=== PATIENT | male | born 1975 | race Caucasian/White ===

== ENCOUNTER 2021-05-14 15:28 | Emergency (ER) | payer BC ==
--- NOTE | 2021-05-14 16:32 | EDM.PDOC ---
ED HPI GENERAL MEDICAL PROBLEM - General Chief Complaint: Abdominal Pain Stated Complaint: UPPER ABDOMINAL PAIN Time Seen by Provider: 05/14/21 16:00 Source of Information: Reports: Patient History Limitations: Reports: No Limitations - History of Present Illness INITIAL COMMENTS - FREE TEXT/NARRATIVE: Patient 46-year-old male presenting to the emergency room with a chief complaint of epigastric pain. Patient reports pain is been ongoing for the past 4 days. Patient reports the pain does not radiate but seems to not get any better. Patient ports the pain does go away for some time but does return. Patient reports no exertional symptoms. Patient reports shortness of breath but that has been present since the patient had Covid in early May. Patient states he has had issues with acid reflux in the past but this feels worse. Patient denies any nausea, vomiting, diarrhea. Normal bowel movements. Denies any history of smoking. Patient did drink several alcoholic beverages 2 days ago for his birthday. Middle Abdomen Pain Score (Numeric/FACES): 5 - Related Data Allergies Allergy/AdvReac Type Severity Reaction Status Date / Time No Known Allergies Allergy Verified 05/14/21 15:58 Home Meds: Home Meds Rosuvastatin Calcium [Crestor] 1 tab PO DAILY 05/14/21 [History] Past Medical History Cardiovascular History: Reports: Hypertension Gastrointestinal History: Reports: GERD Psychiatric History: Reports: Anxiety - Infectious Disease History Infectious Disease History: Reports: Novel Coronavirus Social & Family History - Tobacco Use Tobacco Use Status *Q: Never Tobacco User - Caffeine Use Caffeine Use: Reports: None - Recreational Drug Use Recreational Drug Use: No ED ROS GENERAL - Review of Systems Review Of Systems: See Below Free Text/Narrative/Comment: In addition to that documented in the HPI above, the additional ROS was obtained: Constitutional: Denies fevers or chills Eyes: Denies vision changes ENMT: Denies sore throat CV: Denies chest pain Resp: Per HPI GI: Denies vomiting or diarrhea : Denies painful urination MSK: Denies recent trauma Skin: Denies new rashes Neuro: Denies new numbness or tingling or weakness Endocrine: Denies unexpected weight loss Heme: Denies bleeding disorders ED EXAM, GI/ABD - Physical Exam Exam: See Below Text/Narrative:: I have reviewed the triage vital signs Const: Well nourished, well developed, appears stated age Eyes: Pupils Equal and reactive to light bilaterally, no conjunctival injection HENT: No signs of trauma or swelling, Neck supple without meningismus CV: Regular Rate Rhythm, Warm, well-perfused extremities RESP: Unlabored respiratory effort GI: soft, epigastrium is mildly tender to palpation. There is no right upper quadrant tenderness palpation., non-distended, no masses MSK: No gross deformities appreciated Skin: Warm, dry. 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 Sensation and motor function of extremities grossly intact. Psych: Appropriate mood and affect. #1 Interpretation EKG Date: 05/14/21 Time: 16:04 Rhythm: NSR Rate (Beats/Min): 96 [place]: RAD-Right [place] Deviation P-Wave: Present QRS: Normal ST-T: Normal QT: Normal Course - Vital Signs Last Recorded V/S: Last Vital Signs Temp 36.2 C 05/14/21 15:56 Pulse 60 05/14/21 15:56 Resp 18 05/14/21 15:56 BP 141/86 H 05/14/21 15:56 Pulse Ox 96 05/14/21 15:56 - Orders/Labs/Meds Labs: Laboratory Tests 05/14/21 05/14/21 Range/Units 17:00 17:00 WBC 7.23 (4.23-9.07) K/mm3 RBC 5.20 (4.63-6.08) M/mm3 Hgb 15.3 (13.7-17.5) gm/dl Hct 45.1 (40.1-51.0) % MCV 86.7 (79.0-92.2) fl MCH 29.4 (25.7-32.2) pg MCHC 33.9 (32.2-35.5) g/dl RDW Std Deviation 39.7 (35.1-43.9) fL Plt Count 241 (163-337) K/mm3 MPV 9.7 (9.4-12.3) fl Neut % (Auto) 74.6 H (34.0-67.9) % Lymph % (Auto) 15.1 L (21.8-53.1) % [place] % (Auto) 9.4 (5.3-12.2) % Eos % (Auto) 0.7 L (0.8-7.0) Baso % (Auto) 0.1 (0.1-1.2) % Neut # (Auto) 5.39 H (1.78-5.38) K/mm3 Lymph # (Auto) 1.09 L (1.32-3.57) K/mm3 [place] # (Auto) 0.68 (0.30-0.82) K/mm3 Eos # (Auto) 0.05 (0.04-0.54) K/mm3 Baso # (Auto) 0.01 (0.01-0.08) K/mm3 Sodium 136 (136-145) mEq/L Potassium 4.2 (3.5-5.1) mEq/L Chloride 100 (98-107) mEq/L Carbon Dioxide 27 (21-32) mEq/L Anion Gap 13.2 (5-15) BUN 14 (7-18) mg/dL Creatinine 1.2 (0.7-1.3) mg/dL Est Cr Clr Drug Dosing 86.93 mL/min Estimated GFR (MDRD) > 60 (>60) mL/min BUN/Creatinine Ratio 11.7 L (14-18) Glucose 112 H (70-99) mg/dL Calcium 9.5 (8.5-10.1) mg/dL Total Bilirubin 0.8 (0.2-1.0) mg/dL AST 20 (15-37) U/L ALT 42 (16-63) U/L Alkaline Phosphatase 71 (46-116) U/L Troponin I < 0.017 (0.00-0.056) ng/mL Total Protein 8.2 (6.4-8.2) g/dl Albumin 4.4 (3.4-5.0) g/dl Globulin 3.8 gm/dL Albumin/Globulin Ratio 1.2 (1-2) Lipase 109 (73-393) U/L Meds: Medications Discontinued Medications Generic Name Dose Route Start Last Admin Trade Name Freq PRN Reason Stop Dose Admin Al Hydroxide/Mg Hydroxide 30 0 ml 05/14/21 16:39 05/14/21 17:02 ml/ Lidocaine HCl 15 ml PO 05/14/21 16:40 45 ml ONETIME ONE Administration Famotidine 20 mg 05/14/21 16:39 05/14/21 17:01 Famotidine 20 Mg Tab PO 05/14/21 16:40 20 mg ONETIME ONE Administration Departure - Departure Time of Disposition: 17:41 Disposition: Home, Self-Care 01 Clinical Impression: Abdominal pain - Discharge Information *PRESCRIPTION DRUG MONITORING PROGRAM REVIEWED*: Not Applicable *COPY OF PRESCRIPTION DRUG MONITORING REPORT IN PATIENT HYUN: Not Applicable Instructions: Abdominal Pain, Adult, [id number] Referrals: James Mejía MD [Primary Care Provider] - Forms: ED Department Discharge Additional Instructions: To the emergency department immediately for worsening of pain, shortness of breath or any other major concerns. Otherwise, I recommend following up with your primary care physician on Monday. Sepsis Event Note (ED) - Evaluation Sepsis Screening Result: No Definite Risk - Assessment/Plan Assessment:: Patient 46-year-old male presenting to the emergency room with epigastric discomfort. Patient had unremarkable ER course. Vital signs remained stable while in the emergency room. Differential diagnosis considered for this patient include inferior CT, perforated peptic ulcer, pancreatitis, hepatitis, biliary tract disease. Laboratory studies all within normal limits. EKG demonstrates normal sinus rhythm without ischemic changes. At this point, patient is low risk from a heart score standpoint and symptoms seem to be possibly musculoskeletal related versus GI. No indication for emergent admission at this time. Will refer patient to outpatient primary care. All questions addressed and answered. Patient agrees with plan of care.
[2021-05-14] MEDS ORDERED: Alum Hydrox/Mag Hydrox/Simeth 30 ML, Lidocaine 2% 15 ML PO ONE ×2 (16:39)
[2021-05-14] MEDS ORDERED: Famotidine 20 MG Tab PO ONE (16:39)
== END 2021-05-14 17:52 | disposition home or self-care (01) ==
LOC: JD.ED 15:28
DX: R10.13 Epigastric pain (principal); I10 Essential (primary) hypertension; Z86.16 Personal history of COVID-19
CPT/HCPCS: 36415; 80053; 83690; 84484; 85025; 93005; 99284; A9270